=== PATIENT | male | born 2000 | race Two or more races ===

== ENCOUNTER 2022-09-06 14:34 | Outpatient (CLI) | payer OTHER, SELFPAY ==
[2022-09-07 11:08] LABS: Kit Draw Collected
== END 2022-09-06 14:35 | disposition home or self-care (01) ==
PROVIDERS: PCP Emergency Medicine; Visit Provider Emergency Medicine
DX: R76.12 Nonspecific reaction to cell mediated immunity measurement of gamma interferon antigen response without active tuberculosis (principal)
CPT/HCPCS: 36415